=== PATIENT | male | born 1975 | race Asian ===

== ENCOUNTER → 2021-07-12 | Day surgery (SDC) | payer BC, OTHER ==
[2021-07-09 14:26] VITALS: BMI 29.8
[~2021-07-12] MED LIST: ACETAMINOPHEN TAB 500 MG TAB PO PRN; DEXAMETHASONE SOD PHOSPHATE 4 MG/ML 1 ML VIAL IV ONE; HEPARIN SODIUM,PORCINE/PF 5,000 UNIT/0.5 ML SYRINGE SQ PRN; HYDROmorphone 0.5 MG/0.5 ML SYRINGE IVP PRN; LACTATED RINGERS 1,000 ML IV SCH; MIDAZOLAM 2 MG/2 ML VIAL IV PRN; ONDANSETRON 4 MG/2 ML VIAL IVP ONE; SCOPOLAMINE 1.5MG/72HR PATCH TRANSDERM ONE
== END ==
LOC: OR 09:05
PROVIDERS: ATTEND Surgery
DX: Z87.19 Personal history of other diseases of the digestive system (principal); K42.0 Umbilical hernia with obstruction, without gangrene; Z53.9 Procedure and treatment not carried out, unspecified reason

== ENCOUNTER 2021-07-15 07:32 | Day surgery (SDC) | payer BC ==
[2021-07-12 11:18] VITALS: BMI 29.8
[~2021-07-15 07:32] MED LIST changes: -HYDROmorphone 0.5 MG/0.5 ML SYRINGE IVP PRN; -MIDAZOLAM 2 MG/2 ML VIAL IV PRN; -SCOPOLAMINE 1.5MG/72HR PATCH TRANSDERM ONE
[2021-07-15 08:03] LABS: Glucose,Whole Blood 100 mg/dL (75-99)
--- NOTE | 2021-07-15 08:04 | P.GSHP ---
History of Present Illness H&P Date: 07/15/21 Chief Complaint: Incarcerated umbilical hernia 46-year-old male known to our service. Previously seen in the office with a incarcerated umbilical hernia. Unfortunately was scheduled for surgery on Thursday but had to be canceled as we had an emergency procedure surgery that took his place. He was rescheduled for today. Patient still has the hernia. Has gotten slightly larger. Mild pain particularly with lifting. No previous surgeries. Past Medical History Past Medical History: No Reported History Additional Past Medical History / Comment(s): recent steroids for sinus infection that finished 07/10/21 ,07/09/21 woke up with pain and swelling on upper gum,denies fever(see nurses notes)-07/12/21 resolved per pt, umbilical hernia History of Any Multi-Drug Resistant Organisms: None Reported Past Surgical History: No Surgical Hx Reported Past Anesthesia/Blood Transfusion Reactions: No Reported Reaction Smoking Status: Current every day smoker - Past Family History Mother Family Medical History: No Reported History Medications and Allergies Home Medications Medication Instructions Recorded Confirmed Type Ibuprofen [Motrin Ib] 200 mg PO Q8H PRN 07/09/21 07/12/21 History Steroid(Name And Dose Unknown) 1 tab PO DIRECTED 07/09/21 07/12/21 History Allergies Allergy/AdvReac Type Severity Reaction Status Date / Time No Known Allergies Allergy Verified 07/15/21 07:50 Surgical - Exam Vital Signs Temp Pulse Resp BP Pulse Ox 97.4 F L 79 18 130/78 97 07/15/21 07:59 07/15/21 07:59 07/15/21 07:59 07/15/21 07:59 07/15/21 07:59 Physical exam: General: Well-developed, well-nourished HEENT: Normocephalic, sclerae nonicteric Abdomen: Nontender, nondistended, small to moderate sized incarcerated umbilical hernia, overlying skin slightly ischemic in appearance Extremities: No edema Neuro: Alert and oriented Assessment and Plan (1) Incarcerated umbilical hernia Narrative/Plan: 46-year-old male with incarcerated umbilical hernia. We'll proceed with open repair with possible mesh at this time. Possible need for umbilectomy if the patient's skin appears ischemic during the procedure. Risks of bleeding, infection, recurrence, bladder and bowel injury, numbness, nerve injury were discussed with the patient. The patient understands and wishes to proceed. Current Visit: Yes Status: Acute Code(s): K42.0 - UMBILICAL HERNIA WITH OBSTRUCTION, WITHOUT GANGRENE SNOMED Code(s): 370514262
[2021-07-15] MEDS ORDERED: MIDAZOLAM 2 MG/2 ML VIAL ONE (09:22)
[2021-07-15] MEDS ORDERED: NEOSTIGMINE 1 MG/ML 10 ML VIAL ONE (09:22)
[2021-07-15] MEDS ORDERED: LIDOCAINE 1% INJ 10MG/ML (20 ML MDV) ONE (09:22)
[2021-07-15] MEDS ORDERED: PROPOFOL 10 MG/ML 20 ML VIAL IV ONE (09:22)
[2021-07-15] MEDS ORDERED: GLYCOPYRROLATE 0.2 MG/ML 2 ML VIAL ONE (09:22)
[2021-07-15] MEDS ORDERED: .fentaNYL (PF) 50 MCG/ML 2 ML AMP ONE (09:22)
[2021-07-15] MEDS ORDERED: SUCCINYLCHOLINE CHLORIDE 100 MG/5 ML SYR IV ONE (09:22)
[2021-07-15] MEDS ORDERED: HYDROmorphone (PF) 1 MG/ML ONE (09:22)
[2021-07-15] MEDS ORDERED: ROCURONIUM 10 MG/ML (5 ML VIAL) IV ONE (09:22)
[2021-07-15] MEDS ORDERED: BUPIVACAIN-EPI 0.25%-1:200,000 30 ML VIAL SQ ONE (09:47)
[2021-07-15] MEDS ORDERED: BUPIVACAINE (PF) 0.25% 30 ML VIAL SQ ONE ×2 (10:10→10:14)
[2021-07-15] MEDS ORDERED: traMADol 50 MG TAB PO STA (10:35)
[2021-07-15 10:37] VITALS: TEMP 97.5
--- NOTE | 2021-07-15 10:38 | P.OP ---
Date of Procedure: 07/15/21 Procedure(s) Performed: PREOPERATIVE DIAGNOSIS: Incarcerated umbilical hernia POSTOPERATIVE DIAGNOSIS: Same PROCEDURE: Repair incarcerated umbilical hernia with mesh SURGEON: Dr. Gusman ANESTHESIA: General OPERATIVE PROCEDURE DETAILS: The patient was placed in the operating table in the supine position. A infraumbilical incision was made using the scalpel. The subcutaneous tissues were dissected bluntly and with cautery. The hernia sac was identified. The umbilical attachments to the fascia were divided using electrocautery. The hernia sac was excised. The defect in the fascia measured 12 x 6 mm. The fat overlying the fascia was dissected. No additional defects were seen. The preperitoneal space was then dissected using blunt dissection and electrocautery. The 4.3 cm ventral ex mesh was placed beneath the fascia and sutured in place using trans-fascial 0 Ethibond sutures. The defect was closed using interrupted interrupted 0 Ethibond mattress sutures. The subcutaneous tissues were reapproximated using inverted 2-0 & 3-0 Vicryl sutures. The umbilicus was tacked back down to the fascia using a 2-0 Vicryl suture. The skin was closed using 4-0 Monocryl sutures. Skin glue and sterile dressings were then applied. HERNIA CHARACTERISTICS: Length: 12 mm Width: 6 mm Type: Incarcerated umbilical TYPE OF MESH USED: 4.3 cm ventral ex LOCATION OF MESH: [place] FIXATION: Trans-fascial 0 Ethibond sutures DISPOSITION: Stable to recovery room
[2021-07-15] MEDS: HYDROmorphone 0.5 MG/0.5 ML SYRINGE IVP PRN ×2 (10:46→11:01)
[2021-07-15] MEDS ORDERED: ACETAMINOPHEN TAB 325 MG TAB PO SCH (12:00)
[2021-07-15 12:11] VITALS: BP 137/76; PULSE 71; RESP 16
[2021-07-15] MEDS ORDERED: IBUPROFEN 600 MG TAB PO SCH (13:45)
== END 2021-07-15 12:32 | disposition home or self-care (01) ==
LOC: OR 07:32
PROVIDERS: ATTEND Surgery
DX: K42.0 Umbilical hernia with obstruction, without gangrene (principal); F17.210 Nicotine dependence, cigarettes, uncomplicated
CPT/HCPCS: 49587; C1781; J2250; J1100; J2710; J0690; J2405; J2001; J3010; J1170 ×2; J0330; J2704; J1644

== ENCOUNTER → 2022-07-06 | Outpatient (CLI) | payer BC ==
--- NOTE | 2022-07-06 20:24 | MR ---
EXAMINATION TYPE: MR cervical spine wo con DATE OF EXAM: 07/06/2022 COMPARISON: None HISTORY: Neck pain, right shoulder pain that radiates down arm into fingers. Multiplanar multiecho imaging of the cervical spine without contrast. There is some mild straightening of the vertebra. There is small posterior disc bulging at C5-6 and C 6-7. There is developmentally adequate spinal canal. No spinal stenosis. No cervical paraspinal mass. There is some uncovertebral spurring and right side C6-7 neural foraminal narrowing. There is left s linda C5-6 neural foraminal narrowing due to uncovertebral spurring. The brainstem is intact. No focal bone destruction. No compression fracture. Facet joints are intact. 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 Right side C6-7 and left side C5-6 neural junaid inal impingement.
== END | disposition home or self-care (01) ==
LOC: RADMRIMAIN 14:00
PROVIDERS: ATTEND Physician Assistant
DX: M47.22 Other spondylosis with radiculopathy, cervical region (principal); R53.1 Weakness
CPT/HCPCS: 72141

== ENCOUNTER → 2024-08-15 | Outpatient (CLI) | payer BC ==
--- NOTE | 2024-08-15 15:53 | XR ---
EXAMINATION TYPE: XR abdomen 2V DATE OF EXAM: 08/15/2024 CLINICAL HISTORY: Gas pain and diarrhea. TECHNIQUE: Supine and upright views of the abdomen are obtained. COMPARISON: CT abdomen and pelvis 2013. FINDINGS: Scattered gas is seen in non-distended small bowel loops. Gas and fecal material is seen in non-distended colon. There is no visceromegaly, pneumoperitoneum, or abnormal calcification appr eciated. The lung bases are clear and the osseous structures are intact. IMPRESSION: Overall nonobstructive bowel gas pattern. [facility], , 08/15/2024 3:51 PM
== END | disposition home or self-care (01) ==
LOC: RADXRYALE 15:06
PROVIDERS: ATTEND Physician Assistant
DX: R14.1 Gas pain (principal); R19.7 Diarrhea, unspecified
CPT/HCPCS: 74019